=== PATIENT | male | born 1960 | race Caucasian/White ===

== ENCOUNTER 2017-03-17 16:01 | Emergency (ER) | payer MEDICARE, MEDICAID ==
[2017-03-17 16:12] VITALS: RESP 18; TEMP 97.1
[2017-03-17] MEDS ORDERED: KETOROLAC TROMETHAMINE 30 MG/ML SOL IV ONE ×2 (16:15→16:19)
[2017-03-17] MEDS ORDERED: KETOROLAC TROMETHAMINE 30 MG/ML SOL ONE (16:29)
[2017-03-17 18:19] VITALS: BP 124/64; PULSE 65; O2SAT 97
[2017-03-17] MEDS ORDERED: SODIUM CHLORIDE 0.9% FLUSH 10 ML SOL IV PRN (18:23)
== END 2017-03-17 18:05 | DRG 93 ==
LOC: ED 16:01
DX: G89.29 Other chronic pain (principal); M25.569 Pain in unspecified knee
CPT/HCPCS: 99283; J1885

== ENCOUNTER 2017-04-17 06:01 | Emergency (ER) | payer MEDICARE, MEDICAID ==
[2017-04-17 06:15] VITALS: TEMP 98.5
[2017-04-17 06:19] VITALS: RESP 16
[2017-04-17 06:27] LABS: BASOPHILS % (AUTO) 3 % (0-3); EOSINOPHILS % (AUTO) 6 % (0-9); HEMATOCRIT 30 % (39-53); MEAN CORPUSCULAR HGB CONC 34.1 gm/dl (32.0-36.0); MEAN CORPUSCULAR VOLUME 92 fL (80-100); MONOCYTES % (AUTO) 10.5 % (0-12); NEUTROPHILS % (AUTO) 63.5 % (37-80)
[2017-04-17 06:39] LABS: ALBUMIN 2.4 gm/dl (3.4-5.0); CALCIUM 9.3 mg/dl (8.5-10.1)
[2017-04-17 06:42] LABS: POTASSIUM 6.1 mMol/L (3.5-5.1)
[2017-04-17 07:10] VITALS: BP 129/64; PULSE 55; O2SAT 97
== END 2017-04-17 06:45 | DRG 81 ==
LOC: ED 06:01
DX: R40.0 Somnolence (principal); Z99.2 Dependence on renal dialysis
CPT/HCPCS: 36415; 80053; 85025; 99282; 99283